=== PATIENT | male | born 1980 | race Caucasian/White ===

== ENCOUNTER 2021-08-11 07:09 | Emergency (ER) | payer BC, MEDICAID, SELFPAY ==
[2021-08-11 07:10] VITALS: BP 123/90; PULSE 65; RESP 25; TEMP 36.8; O2SAT 97; BMI 25.1
--- NOTE | 2021-08-11 07:19 | W.ED.GENADLT ---
HPI - General Adult General: Chief complaint: Shortness of Breath/Dyspnea Stated complaint: cough,dizzy Time Seen by Provider: 08/11/21 07:19 History of Present Illness: 40-year-old male presents emergency room. He is complaining of shortness of breath and chest congestion. Approximately 6-8 weeks ago patient had COVID. He tolerated that well and recovered but states that since that time he has noticed shortness of breath poor exercise tolerance. Activities that usually would not bother him now he feels are strenuous and cause severe shortness of breath. Patient denies any further fever sweats or chills. He has a nonproductive cough. Patient does smoke he has no known history of asthma. Beyond rest he has not noticed anything that relieves his symptoms. He states almost any level of exertion will trigger them. He has not had any hemoptysis. He has not currently taking any medications. He was not hospitalized for his COVID. Onset (ago): week(s) Location: chest Severity: moderate Relieving factors: none Exacerbating factors: none Associated symptoms: Reports cough, dyspnea, short of breath and weakness; Deny chest pain, confusion, diaphoresis, decreased appetite, fevers/chills, headache(s), malaise, nausea, rash, palpitations, seizures, syncope or vomiting Treatments prior to arrival: none Review of Systems Const: Denies: malaise or diaphoresis ENMT: Denies: throat pain, ear or mastoid pain, nasal discharge or nasal congestion Card: Denies: chest pain, palpitations or syncope Resp: Reports: dyspnea GI: Denies: nausea or vomiting : Denies: flank pain, dysuria, urinary frequency or urinary urgency Skin/Breast: Denies: rash Neuro: Denies: headache(s) or confusion [facility] ED PFSH: Medical History (Updated 08/11/21 @ 09:44 by Gume Marcelino DO) Hypothyroidism Surgical History (Updated 08/11/21 @ 08:37 by Gume Marcelino DO) No significant past surgical history Social History (Updated 08/11/21 @ 08:37 by Gume Marcelino DO) Smoking and tobacco status: current every day smoker Physical Exam Const: COMMON NORMALS: no acute distress GENERAL APPEARANCE: cooperative and comfortable ORIENTATION/CONSCIOUSNESS: Yes awake, Yes oriented to person, Yes oriented to place and Yes oriented to time HENMT: COMMON NORMALS: normocephalic, atraumatic and hearing grossly normal bilaterally HEAD & SCALP: normocephalic and atraumatic Neck/C-Spine: COMMON NORMALS: no JVD Resp: COMMON NORMALS: normal respiratory effort, No retractions, No use of accessory muscles and clear to auscultation bilaterally AUSCULTATION: clear to auscultation bilaterally Cardio: COMMON NORMALS: no JVD, regular rate, regular rhythm and No murmurs present (Cardio) RATE: regular rate RHYTHM: regular rhythm GI: COMMON NORMALS: Soft to palpation and No hepatosplenomegaly present AUSCULTATION: Yes normoactive bowel sounds PALPATION: Yes Soft to palpation, No Tenderness to palpation present (GI), No Guarding due to palpation present (GI) and Yes No hepatosplenomegaly present Extremity: COMMON NORMALS: normal to inspection, capillary refill normal, no clubbing, cyanosis or edema, no calf tenderness and no pedal edema Neuro: SENSORIUM/ORIENTATION: Yes oriented to person, Yes oriented to place and Yes oriented to time Skin: COMMON NORMALS: no rashes or lesions noted GENERAL SKIN EXAM: no rashes or lesions noted Course Vital Signs: Vital signs: Vital Signs Temperature 98.2 F 08/11/21 07:10 Pulse Rate 60 08/11/21 10:00 Respiratory Rate 16 08/11/21 10:00 Blood Pressure 138/97 08/11/21 10:00 Pulse Oximetry 97 08/11/21 10:00 [facility] - General Adult Medical Decision Making D-dimer mildly elevated. No PE. There is a question of intramural thrombus I discussed with Dr. Connolly she feels that some very unlikely possibility but on the imaging there was some concern of it. His D-dimer is only minimally elevated. Patient does smoke. I think these are more residual symptoms from his previous Covid infection we will put him on albuterol to use as needed and to set him up to see pulmonology reviewed findings and recommendations with him he is expresses understanding of the plan Case management will contact him for referral. Discharge home for now return for sudden or worsening symptoms Medical Records I reviewed the patient's medical records. Lab Data I reviewed the patient's lab results. : 08/11/21 08:00 08/11/21 08:00 Radiology Impressions Chest CTA 08/11/21 08:31 IMPRESSION: 1. No pulmonary embolism. 2. No pneumonia. 3. Mild increased density towards the LEFT ventricular apex. This may be due to incomplete mixing of contrast. Ventricular thumb this may appear similar. Echocardiogram would be helpful to exclude LEFT ventricular apex thrombus. Laboratory Results WBC 6.6 10^3/uL (4.0-10.0) 08/11/21 08:00 RBC 5.23 10^6/uL (4.1-5.3) 08/11/21 08:00 Hgb 15.9 g/dL (11.7-16.6) 08/11/21 08:00 Hct 45.3 % (42.0-52.0) 08/11/21 08:00 MCV 86.6 fl (80-94) 08/11/21 08:00 MCH 30.4 pg (28.0-34.0) 08/11/21 08:00 MCHC 35.1 g/dL (30.0-36.0) 08/11/21 08:00 RDW 12.3 % (12.1-15.1) 08/11/21 08:00 Plt Count 222 10^3/cmm (130-400) 08/11/21 08:00 MPV 10.5 fL (7.4-10.4) H 08/11/21 08:00 Neut % (Auto) 57.5 % 08/11/21 08:00 Lymph % (Auto) 31.8 % 08/11/21 08:00 Potter % (Auto) 7.0 % 08/11/21 08:00 Eos % (Auto) 2.6 % 08/11/21 08:00 Baso % (Auto) 0.8 % 08/11/21 08:00 Neut # (Auto) 3.79 10^3/uL (1.8-7.7) 08/11/21 08:00 Lymph # (Auto) 2.1 10^3/uL (0.8-4.8) 08/11/21 08:00 Potter # (Auto) 0.5 10^3/uL (0.2-0.9) 08/11/21 08:00 Eos # (Auto) 0.2 10^3/uL (0.0-0.8) 08/11/21 08:00 Baso # (Auto) 0.1 10^3/uL (0.0-0.1) 08/11/21 08:00 Nucleated RBC % (auto) 0 % 08/11/21 08:00 Nucleated RBCs # 0.0 /100WBC 08/11/21 08:00 D-Dimer 0.72 ug/mIFEU (0-0.59) H 08/11/21 08:00 Sodium 136 mmol/L (136-145) 08/11/21 08:00 Potassium 4.4 mmol/L (3.5-5.1) 08/11/21 08:00 Chloride 103 mmol/L (98-107) 08/11/21 08:00 Carbon Dioxide 22 mmol/L (22-29) 08/11/21 08:00 Anion Gap 15.4 (5-19) 08/11/21 08:00 BUN 10 mg/dL (6-20) 08/11/21 08:00 Creatinine 0.7 mg/dL (0.7-1.2) 08/11/21 08:00 GFR Calculation 124.3 mL/min (90-130) 08/11/21 08:00 Glucose 87 mg/dL (65-115) 08/11/21 08:00 Calculated Osmolality 280 mOsm/kg (285-295) L 08/11/21 08:00 Calcium 9.6 mg/dL (8.5-10.5) 08/11/21 08:00 Discharge Plan Discharge Patient Disposition: Home Clinical Impression: Chronic dyspnea, 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 hotel office manager will make arrangements for you to follow-up with pulmonology to further evaluate the shortness of breath. Coding Level of Care Code ED Outside Machinist Supervisor for Chg Fwd Exam Comprehensive
[2021-08-11 07:25] VITALS: BP 121/89; PULSE 64; RESP 16; O2SAT 97
--- NOTE | 2021-08-11 07:33 | ECG_ITS ---
[facility] Test Date: 2021-08-11 Pat Name: Mark Alvarez Department: Room: Gender: Male Furniture Builder: : 1980 Requested By: Gume Estrada Order Number: [id number] Celine MD: Poonam Camarena M.D. Measurements Intervals [place] Rate: 52 P: 59 MS: 129 QRS: 33 QRSD: 92 T: 63 QT: 383 QTc: 358 Interpretive Statements SINUS BRADYCARDIA No previous ECG available for comparison Electronically Signed On 08-11-2021 16:11:09 HANGER by Poonam Camarena M.D. [id number]
[2021-08-11 08:16] LABS: Basophils # 0.1 10^3/uL (0.0-0.1); Basophils % 0.8 %; Eosinophils # 0.2 10^3/uL (0.0-0.8); Eosinophils % 2.6 %; Hematocrit 45.3 % (42.0-52.0); Hemoglobin 15.9 g/dL (11.7-16.6); Lymphocytes # 2.1 10^3/uL (0.8-4.8); Lymphocytes % 31.8 %; Mean Corpuscular HGB Conc 35.1 g/dL (30.0-36.0); Mean Corpuscular Hemoglobin 30.4 pg (28.0-34.0); Mean Corpuscular Volume 86.6 fl (80-94); Mean Platelet Volume 10.5 fL (7.4-10.4); Monocytes # 0.5 10^3/uL (0.2-0.9); Neutrophils # 3.79 10^3/uL (1.8-7.7); Neutrophils % 57.5 %; Nucleated Red Blood Cells % 0 %; Platelet Count 222 10^3/cmm (130-400); Red Blood Count 5.23 10^6/uL (4.1-5.3); Red Cell Distribution Width 12.3 % (12.1-15.1); White Blood Count 6.6 10^3/uL (4.0-10.0)
[2021-08-11 08:27] LABS: D Dimer 0.72 ug/mIFEU (0-0.59)
[2021-08-11 08:31] LABS: Anion Gap 15.4 (5-19); Blood Urea Nitrogen 10 mg/dL (6-20); Calcium 9.6 mg/dL (8.5-10.5); Carbon Dioxide 22 mmol/L (22-29); Chloride 103 mmol/L (98-107); Glomerular Filtration Rate 124.3 mL/min (90-130); Glucose 87 mg/dL (65-115); Osmolality Calculated 280 mOsm/kg (285-295); Potassium 4.4 mmol/L (3.5-5.1); Sodium 136 mmol/L (136-145)
--- NOTE | 2021-08-11 08:31 | CT_ITS ---
WS: [id number] CT CHEST ANGIOGRAPHY WITH REFORMATS HISTORY: dypsnea/elevated d dimer TECHNIQUE: Contiguous axial images are obtained through the chest during arterial injection of intrav enous contrast. Images are reconstructed to evaluate the pulmonary arteries. MIP imaging also reviewe d. All CT scans at [facility] [place] use at least one of these dose optimization techniques: automat ed exposure control; mA and/or kV adjustment per patient size (includes targeted exams where dose is matched to clinical indication); or iterative reconstruction. CONTRAST: Omnipaque 350; 95 mL IV. DLP: 589.81 mGy.cm COMPARISON: None available. Excellent opacification of the pulmonary arteries. No pulmonary embolism. The pulmonary artery is nor mal size. Thoracic aorta is normal size. No opacification of the aorta due to phase of injection and imaging. No RIGHT heart strain. LEFT ventricle does appear slightly enlarged. There is mixed contrast opacification within the LEFT ventricle especially towards the apex. This is probably due to mixing of blood.0 Underlying intraventricular thrombus at the apex may appear similar. No mediastinal or hilar adenopathy. Lungs are clear. No mass or pneumonia. Small hiatal hernia. No ad renal mass. The visualized liver is normal. CT/CT angio chest PE protcl [id number] IMPRESSION: 1. No pulmonary embolism. 2. No pneumonia. 3. Mild increased density towards the LEFT ventricular apex. This may be due t o incomplete mixing of contrast. Ventricular thumb this may appear similar. Ech ocardiogram would be helpful to exclude LEFT ventricular apex thrombus.
[2021-08-11 10:00] VITALS: BP 138/97; PULSE 60; RESP 16; O2SAT 97
--- NOTE | 2021-08-19 17:49 | DCPLANNER ---
Addendum entered by Em Dunham 09/12/21 07:49: Patient had a follow up appointment scheduled for 08.28.[address] Butcher at [facility] - patient did not attend appointment. Original Note: it service manager had message to schedule a follow up appointment for patient with pulmonology. it service manager called [facility], spoke with Stefanie Mancilla, gave clinic patients information. A follow up appointment was scheduled for August at 8:[address] Butcher. it service manager called patient and gave him the appointment information.
== END 2021-08-11 10:01 | disposition home or self-care (01) ==
PROVIDERS: Emergency Provider Family Medicine
DX: R06.09 Other forms of dyspnea (principal); U09.9 Post COVID-19 condition, unspecified; F17.210 Nicotine dependence, cigarettes, uncomplicated
CPT/HCPCS: 71275; 80048; 85025; 85378; 93005; 99283; Q9967

== ENCOUNTER 2022-10-29 07:59 | Emergency (ER) | payer MEDICAID, SELFPAY ==
[2022-10-29 08:08] VITALS: BP 134/87; PULSE 63; RESP 18; TEMP 36.6; O2SAT 100; BMI 25.9
--- NOTE | 2022-10-29 08:16 | ED_ITS ---
HPI - Ear Problem General: Chief complaint: Upper Respiratory Infection Stated complaint: jaw and ear pain Time Seen by Provider: 10/29/22 08:08 Source: patient Mode of arrival: ambulatory Limitations: no limitations History of Present Illness: Patient is a nice 42-year-old male who presents to ED today with complaint of left ear pain. He states about 2 weeks ago he was having bilateral ear pain and seen at [facility] ED. He states he was diagnosed with a bilateral ear infection and placed on a 10-day course of antibiotics. Patient states while on antibiotics symptoms to his right ear fully resolved but states his left ear never improved. He is complaining of pain to the ear radiating into the with the left side of his face and jaw. He has no dental discomfort. He states most of his teeth are extracted. He has not noticed any facial swelling or redness. He has no neck pain or swelling. No fevers. He is not having any discharge from the ear. Denies tinnitus. He does feel like hearing is muffled. He states when he was diagnosed with the ear infections he was also having symptoms of sinusitis. He states he believes his allergies might be flaring up. MD Complaint: ear pain Location: left ear Duration: constant Severity: moderate Relieving factors: nothing Exacerbating factors: nothing Context: other (recent dx of bilateral otitis media) Discharge from ear: no Associated symptoms: Reports ear or mastoid pain; Denies fever(s), headache(s), neck pain or tinnitus Treatment prior to arrival: other (finished 10 day course of abx) Review of Systems Const: Denies: fever(s), chills, body aches, fatigue or malaise Eyes: Denies: change in vision, blurry vision, photophobia, eye discomfort or eye discharge ENMT: Reports: ear or mastoid pain and sinus pain; Denies: throat pain, enlarged tonsils, odynophagia, hoarseness, mouth pain, swelling of lips/tongue, oral sores, bleeding gums, dental pain, ear discharge, change in hearing, tinnitus, nasal discharge, nasal congestion, epistaxis or post nasal drip Card: Denies: chest pain Resp: Denies: productive cough or non-productive cough Musc: Denies: neck pain Neuro: Denies: headache(s) All/Imm: Denies: facial swelling or seasonal rhinorrhea PFSH ED PFSH: Medical History (Updated 10/29/22 @ 08:17 by CHARLIE Ayala) Hypothyroidism Surgical History (Updated 08/11/21 @ 08:37 by Gume Marcelino DO) No significant past surgical history Social History (Updated 08/11/21 @ 08:37 by Gume Marcelino DO) Smoking and tobacco status: current every day smoker Physical Exam Const: COMMON NORMALS: no acute distress, average body habitus, patient oriented x3, no limitations, alert and well nourished GENERAL APPEARANCE: cooperative ORIENTATION/CONSCIOUSNESS: Yes awake, Yes oriented to person, Yes oriented to place and Yes oriented to time HENMT: COMMON NORMALS: normocephalic, atraumatic, hearing grossly normal bilaterally, external ears normal, EAC's normal, Normal external nose present, Normal nasal mucous membranes and turbinates present, moist oral mucous membranes, oropharynx normal and gingiva normal HEAD & SCALP: normal to inspection, normocephalic and atraumatic FACE & SINUS: normal facial exam and sinuses nontender NOSE: Normal external nose present and Normal nasal mucous membranes and turbinates present EXTERNAL EAR: Yes external ears normal EXTERNAL AUDITORY CANAL: EAC's normal TYMPANIC MEMBRANE: TM normal on the right and TM abnormal TM laterality: left Details: dull and fluid behind TM MOUTH: Normal oral and palatal mucosa present, lip normal and tongue normal TEETH & GINGIVA: Yes edentulous (apart from a few central and lateral incisors on bottom) THROAT: posterior oropharynx normal, tonsils normal and uvula midline Eye: COMMON NORMALS: Equal, round and reactive pupils present, EOMs intact bilaterally and conjunctivae normal CONJUNCTIVA: Yes conjunctivae normal PUPIL: Yes Equal, round and reactive pupils present Neck/C-Spine: COMMON NORMALS: full ROM and no lymphadenopathy GENERAL: Yes normal visual inspection, No anterior neck swelling and No submandibular swelling Neuro: COMMON NORMALS: patient oriented x3 SENSORIUM/ORIENTATION: Yes alert, Yes oriented to person, Yes oriented to place and Yes oriented to time Course Vital Signs: Vital signs: Vital Signs Temperature 97.9 F 10/29/22 08:08 Pulse Rate 63 10/29/22 08:08 Respiratory Rate 18 10/29/22 08:08 Blood Pressure 134/87 10/29/22 08:08 Pulse Oximetry 100 10/29/22 08:08 Oxygen Delivery Me thod Room Air 10/29/22 08:08 MDM - Ear Medical Decision Making Patient with left serous otitis following what sounds like a sinusitis episode. He has just finished a 10 day course of antibiotics. Reports history of allergies. I think he would benefit form being placed on some flonase. He can follow up with PCP in 2-3 weeks if symptoms do not seem to be improving. Discharge Plan Discharge Patient Disposition: Home Clinical Impression: Acute serous otitis media, left ear Qualifiers: Recurrence: non-recurrent Qualified Code(s): H65.02 - Acute serous otitis media, left ear Condition: Stable Prescriptions: New Allergy Relief (fluticasone) 50 mcg/actuation spray,suspension 1 spray intranasal BID PRN (Reason: allergy symptoms) Qty: 16 0RF Rx Instructions: administer into each nostril No Action albuterol sulfate 90 mcg/actuation HFA aerosol inhaler 2 inh INHALATION Q4H PRN (Reason: shortness of breath or wheezing) Qty: 18 0RF Discharge Orders: Discharge ED (Routine); Ordered 10/29/22 Ordered By: Cony Garcia Referrals: Raven Baca NP [Primary Care Provider] - Patient Instructions: Fluid In The Ear (Serous Otitis Media) (ED) Coding Level of Care Code ED Hospitality Recruiter for Jacob Jefferson
[2022-10-29 08:21] VITALS: BP 134/87; PULSE 66; O2SAT 100
== END 2022-10-29 08:22 | disposition home or self-care (01) ==
PROVIDERS: Emergency Provider Physician Assistant; PCP Nurse Practitioner Family
DX: H65.02 Acute serous otitis media, left ear (principal); F17.210 Nicotine dependence, cigarettes, uncomplicated
CPT/HCPCS: 99283

== ENCOUNTER 2022-11-18 10:34 | Outpatient (CLI) | payer MEDICAID, SELFPAY ==
--- NOTE | 2022-11-18 10:45 | XR_ITS ---
WS: [id number] XR chest 2V* [id number] REASON FOR EXAM: CHRONIC COUGH FINDINGS: Mild tortuosity the thoracic aorta. Normal heart size. Calcified granulomatous disease in both hemithoraces. No active pulmonary parenchymal or pleural disease. XR/XR chest 2V* [id number] IMPRESSION: No acute chest abnormality.
== END 2022-11-18 10:35 | disposition home or self-care (01) ==
LOC: RAD 10:38
PROVIDERS: PCP Nurse Practitioner Family; Visit Provider Nurse Practitioner Family
DX: R05.3 Chronic cough (principal)
CPT/HCPCS: 71046

== ENCOUNTER 2022-12-09 07:03 | Outpatient (CLI) | payer MEDICAID, SELFPAY | END 2022-12-09 07:04 | disposition home or self-care (01) | PROVIDERS: PCP Nurse Practitioner Family; Visit Provider Nurse Practitioner Family | DX: R05.3 Chronic cough (principal); Z87.891 Personal history of nicotine dependence; G47.10 Hypersomnia, unspecified | CPT/HCPCS: 94010; 94726; 94729 ==

== ENCOUNTER → 2023-03-09 13:33 | Outpatient (BNVA) | payer MEDICAID, SELFPAY | PROVIDERS: PCP Nurse Practitioner Family; Visit Provider Internal Medicine | DX: R07.9 Chest pain, unspecified (principal) | CPT/HCPCS: 93005 ==

== ENCOUNTER 2023-03-18 07:18 | Outpatient (CLI) | payer MEDICAID, SELFPAY ==
--- NOTE | 2023-03-18 07:30 | USCV_ITS ---
Mark Alvarez Age: 42 Gender: M : 1980 Exam Date: 03/18/2023 07:32 Ordering Phys: Surjit Conte M.D ([email or web address]) Technologist: Laz Falcon Exam Location: [facility] Indication: irregular heart beat BP: 120 / 70 HR: 49 Rhythm: Sinus Technical Quality: Adequate MEASUREMENTS (Male / Female) Normal Values 2D ECHO LV Diastolic Diameter PLAX 4.6 cm 4.2 - 5.9 / 3.9 - 5.3 cm LV Systolic Diameter PLAX 2.9 cm IVS Diastolic Thickness 0.8 cm 0.6 - 1.0 / 0.6 - 0.9 cm IVS Systolic Thickness 1.5 cm LVPW Diastolic Thickness 1.1 cm 0.6 - 1.0 / 0.6 - 0.9 cm LVPW Systolic Thickness 1.6 cm LVOT Diameter 2.1 cm LV Ejection Fraction 2D Teich 67.4 % LA Diameter 2.8 cm IVC Diameter 1.8 cm M-MODE Aortic Annulus Diameter 3.3 cm LA Ao Ratio MM 0.9 MV E Point Septal Separation 0.8 cm DOPPLER AV Peak Velocity 113.0 cm/s LVOT Peak Velocity 113.0 cm/s AV Area Cont Eq vti 3.0 cm squared AV Area Cont Eq pk 3.4 cm squared MV Area PHT 3.5 cm squared Mitral E to A Ratio 1.2 MV E' Velocity 49.5 cm/s Mitral E to MV E' Ratio 7.3 Mitral E to LV E' Lateral Ratio 6.4 Mitral E to LV E' Septal Ratio 8.5 TR Peak Velocity 197.3 cm/s TR Peak Gradient 15.6 mmHg Right Atrial Pressure 3.0 mmHg Pulmonary Artery Systolic Pressu 18.6 mmHg RV Acceleration Time 0.1 s FINDINGS Left Ventricle Normal left ventricular size, systolic function with no regional wall motion abnormalities. LV EF is 55-60%. Right Ventricle The right ventricle is normal in size and function. Right Atrium The right atrium is normal in size. Left Atrium The left atrium is normal in size. Mitral Valve Structurally normal mitral valve. There is no mitral regurgitation. Aortic Valve Structurally normal aortic valve Tricuspid Valve Mild tricuspid regurgitation. Pulmonary artery systolic pressure is normal Pulmonic Valve Not well visualized Pericardium Normal pericardium without effusion. Aorta Normal ascending aorta dimension. IVC The inferior vena cava appears normal. CONCLUSIONS LV systolic function is normal with EF of 55-60% Trace tricuspid regurgitation No comparison studies are available. Surjit Conte MD (Electronically Signed) Final Date: 27 March 2023 11:46 S
== END 2023-03-18 07:19 | disposition home or self-care (01) ==
PROVIDERS: PCP Nurse Practitioner Family; Visit Provider Internal Medicine
DX: R06.02 Shortness of breath (principal); R00.9 Unspecified abnormalities of heart beat
CPT/HCPCS: 93306

== ENCOUNTER 2023-04-20 20:00 | Outpatient (CLI) | payer MEDICAID, SELFPAY | END 2023-04-20 20:01 | disposition home or self-care (01) | LOC: SLEEP 04-21 05:55 | PROVIDERS: PCP Nurse Practitioner Family; Visit Provider Nurse Practitioner Family | DX: G47.34 Idiopathic sleep related nonobstructive alveolar hypoventilation (principal); R53.83 Other fatigue; R06.83 Snoring | CPT/HCPCS: 95810 ==

== ENCOUNTER 2023-05-14 12:45 | Outpatient (CLI) | payer MEDICAID, SELFPAY ==
--- NOTE | 2023-05-14 | ECG_ITS ---
[facility] Test Date: 2023-05-14 Pat Name: Mark Alvarez Department: Room: Gender: Male Security Compliance Engineer: Vesna AdamsAnkur : 1980 Requested By: Surjit Conte Order Number: [id number] Celine MD: Surjit Conte M.D. Interpretive Statements NAME OF STUDY: TREADMILL STRESS TEST INDICATION: [Chest Pain] EXERCISE DATA: The patient was exercised by Aime protocol. Baseline heart rate was 74 beats per minute. Baseline blood pressure was 109/77 millimeters of mercury. Target heart rate was 150 beats per minute. Maximum heart rate achieved was 168, which was 112% of the target heart rate. Maximum blood pressure was 165/41 millimeters of mercury. Total exercise time was 10 minutes and 21 seconds. Maximum METs achieved was 13.5. The reason for ending the test was completion of protocol. The patient complained of shortness of breath during the stress test, which then resolved at the end of the test. ELECTROCARDIOGRAM: BASELINE: Showed sinus rhythm, normal axis, no significant ST-T changes at the baseline noted. [] EXERCISE: At the peak exercise level, [] No significant ST-T changes suggestive of ischemia noted. [] RECOVERY: During the recovery period, heart rate dropped appropriately. No significant ST-T changes in the recovery suggestive of ischemia noted. [] CONCLUSION: 1. Exercise capacity is excellent 2. Heart rate response was appropriate 3. Blood pressure response was appropriate 4. Symptoms not suggestive of ischemia. 5. Exercise stress test is negative for ischemia Electronically Signed On 05-19-2023 14:17:29 DIRECTOR INSTITUTION by Surjit Conte M.D. [id number]
[2023-05-14 12:51] VITALS: BMI 23.7
[2023-05-14 13:17] VITALS: BP 140/86; PULSE 83
== END 2023-05-14 12:46 | disposition home or self-care (01) ==
LOC: CDL 12:47
PROVIDERS: Visit Provider Internal Medicine
DX: R07.9 Chest pain, unspecified (principal)
CPT/HCPCS: 93017

== ENCOUNTER 2023-09-07 18:50 | Emergency (ER) | payer MEDICAID, SELFPAY ==
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
[2023-09-07 18:56] VITALS: BP 136/82; PULSE 83; RESP 16; TEMP 36.7; O2SAT 99; BMI 22.6
--- NOTE | 2023-09-07 19:10 | ED_ITS ---
HPI - Extremity Problem General: Chief complaint: Extremity Injury, Lower Stated complaint: right knee pain Time Seen by Provider: 09/07/23 18:55 Source: patient Mode of arrival: ambulatory Limitations: no limitations History of Present Illness: Patient is a 43-year-old male presenting to the emergency department complaining of right knee pain onset 2-3 days. Patient notes he was moving a 14 foot tr ailer by himself on Wednesday, when he pivoted his right foot and felt a pop and subsequent twisting injury at the right knee. He notes being unable to ambulate on it since, and that he was evaluated at that time and cleared of any acute fracture or dislocation. He was told at that time to follow-up with primary care for further evaluation, and states while he has an appointment scheduled for this Wednesday, the pain is too unbearable and due to his occupation and lifestyle he needs to be able to do some things. He states the pain has not changed, but has worsened. He denies any new bruising or edema. He has been alternating Tylenol and ibuprofen and notes minimal relief. He does have crutches at home but states he has not been using these as often as he should. He denies any other symptoms at this time. MD Complaint: joint pain (Right knee) Onset (ago): day(s) (2-3) Pain Consistency: constant Location: right Quality: sharp Radiation: none Relieving factors: nothing Exacerbating factors: walking and other (Twisting) Associated symptoms: Reports no associated symptoms; Deny chest pain, fever(s) or rash Review of Systems General: Reports: 10 or more systems reviewed and unremarkable except in HPI and below Const: Denies: fever(s), chills or fatigue Eyes: Denies: change in vision ENMT: Denies: throat pain, ear or mastoid pain or nasal discharge Card: Denies: chest pain, palpitations, swelling of feet/ankles or lightheadedness Resp: Denies: dyspnea, productive cough or wheezing GI: Denies: abdominal pain, nausea, vomiting, diarrhea or constipation : Denies: flank pain, difficulty urinating, dysuria or urinary frequency Musc: Reports: joint pain (Right knee); Denies: neck pain or back pain Skin/Breast: Denies: rash Neuro: Denies: headache(s), numbness in extremities or weakness in extremities PFSH ED PFS: Medical History Hypothyroidism Surgical History No significant past surgical history Social History Smoking and tobacco/nicotine status: current every day tobacco/nicotine user Physical Exam Const: COMMON NORMALS: no acute distress, patient oriented x3 and no limitations GENERAL APPEARANCE: cooperative, comfortable and well developed ORIENTATION/CONSCIOUSNESS: Yes awake, Yes oriented to person, Yes oriented to place and Yes oriented to time HENMT: COMMON NORMALS: normocephalic, atraumatic and hearing grossly normal bilaterally HEAD & SCALP: normocephalic and atraumatic Eye: COMMON NORMALS: Equal, round and reactive pupils present, EOMs intact bilaterally and conjunctivae normal CONJUNCTIVA: Yes conjunctivae normal PUPIL: Yes Equal, round and reactive pupils present Neck/C-Spine: COMMON NORMALS: full ROM, supple and no JVD Resp: COMMON NORMALS: normal respiratory effort, No retractions, No use of accessory muscles and clear to auscultation bilaterally AUSCULTATION: clear to auscultation bilaterally Cardio: COMMON NORMALS: no JVD, regular rate, regular rhythm, No clicks present (Cardio), No murmurs present (Cardio) and No rub (Cardio) RATE: regular rate RHYTHM: regular rhythm Extremity: COMMON NORMALS: normal to inspection, capillary refill normal, no clubbing, cyanosis or edema, no calf tenderness and no pedal edema NARRATIVE EXTREMITY EXAM: Tenderness to palpation at the lateral and medial joint lines of the right knee. No obvious swelling or bruising. No deformities noted. Special testing of the knee unreliable as pain is reproduced with any movement. No appreciable joint effusion. Neuro: COMMON NORMALS: patient oriented x3, moves all extremities, no focal motor deficits and no sensory deficits noted SENSORIUM/ORIENTATION: Yes oriented to person, Yes oriented to place and Yes oriented to time Psych: COMMON NORMALS: mental status grossly normal and Normal thought process present THOUGHT PROCESS: Normal thought process present Skin: COMMON NORMALS: no rashes or lesions noted GENERAL SKIN EXAM: no rashes or lesions noted Course Vital Signs: Vital signs: Vital Signs Temperature 98.1 F 09/07/23 18:56 Pulse Rate 83 09/07/23 18:56 Respiratory Rate 16 09/07/23 18:56 Blood Pressure 136/82 09/07/23 18:56 Pulse Oximetry 99 09/07/23 18:56 Oxygen Delivery Me thod Room Air 09/07/23 18:56 MDM - Extremity (Nontraumatic) Medical Decision Making Patient seen and evaluated for subsequent encounter of right knee pain he suffered while moving a trailer on Wednesday. He notes that the pain is wo rsened, and while he has an appointment scheduled for primary care this Wednesday, the pain has become unbearable and due to his lifestyle he would like some relief. Repeat x-ray showed no acute findings. Vitals normal. Exam did reveal some tenderness to palpation about the right lateral medial joint line of the knee, however there was no bruising, deformities, or appreciable joint effusions. Patient is prescribed [place] to take as needed for his pain until follow-up Wednesday, and he is instructed to be nonweightbearing and states he has crutches at home. At this time patient diagnosed with right knee sprain, however this needs further evaluated with an MRI. Patient agrees with discharge home and return precautions are given. Lab Data Radiology Impressions Knee X-Ray 09/07/23 18:51 IMPRESSION: No acute findings. All radiology interpretation(s) finalized by discharge Discharge Plan Discharge Patient Disposition: Home Clinical Impression: Right knee sprain Qualifiers: Encounter type: subsequent encounter Involved ligament of knee: unspecified ligament Qualified Code(s): S83.91XD - Sprain of unspecified site of right knee, subsequent encounter Condition: Stable Prescriptions: New hydrocodone-acetaminophen 5-325 mg tablet 1 tab PO Q6H PRN (Reason: pain) Qty: 14 0RF No Action magnesium oxide 500 mg capsule 500 mg PO DAILY Vitamin B-12 PO potassium gluconate 595 mg (99 mg) tablet 595 mg PO DAILY albuterol sulfate 90 mcg/actuation HFA aerosol inhaler 2 inh INHALATION Q4H PRN (Reason: shortness of breath or wheezing) Qty: 18 0RF Allergy Relief (fluticasone) 50 mcg/actuation spray,suspension 1 spray intranasal BID PRN (Reason: allergy symptoms) Qty: 16 0RF Rx Instructions: administer into each nostril Discharge Orders: Discharge ED (Routine); Ordered 09/07/23 Ordered By: Augie Walker Discharge Diet: Usual diet Discharge Activity: Increase activity as tolerated Patient Instructions: Knee Pain (ED) Activity Restrictions/Additional Instructions: Pain medications as directed. Ice for added relief. Nonweightbearing as instructed. Continue plan for follow-up this Wednesday for further evaluation. Return with any new or concerning symptoms. Stand Alone Forms: Work/School Release Coding Level of Care Code ED Cooler Room Worker for Jacob Jefferson
[2023-09-07] MEDS: ketorolac 60 mg/2 mL INJ IM (19:16)
[2023-09-07] MEDS: dexamethasone 10 mg/mL INJ 8 MG IM (19:16)
[2023-09-07 19:42] VITALS: PULSE 82; RESP 16; O2SAT 97
== END 2023-09-07 19:43 | disposition home or self-care (01) ==
PROVIDERS: Emergency Provider Physician Assistant
DX: S83.91XA Sprain of unspecified site of right knee, initial encounter (principal); Z72.0 Tobacco use; X50.1XXA Overexertion from prolonged static or awkward postures, initial encounter
CPT/HCPCS: 73562; 96372; 99284; J1100; J1885

== ENCOUNTER 2024-02-20 13:32 | Emergency (ER) | payer MEDICAID, SELFPAY ==
[2024-02-20 13:55] VITALS: BP 109/75; PULSE 70; RESP 17; TEMP 36.7; O2SAT 98; BMI 22.8
--- NOTE | 2024-02-20 14:15 | ED_ITS ---
HPI - Extremity Problem General: Chief complaint: Extremity Injury, Lower Stated complaint: right angle and knee injury Time Seen by Provider: 02/20/24 14:14 History of Present Illness: 43-year-old male patient comes in today for injury to the right ankle. Patient reports that he was on a trampoline and was jumping and bouncing and felt a pop in his ankle. Patient now has pain to the right ankle is unable to bear weight. Patient has antalgic gait. Patient also reports some mild pain to his right knee. Related Data Home Medications Medication Instructions Recorded Confirmed Vitamin B-12 PO 03/09/23 06/09/23 magnesium oxide 500 mg capsule 500 mg PO DAILY 03/09/23 06/09/23 potassium gluconate 595 mg (99 mg) 595 mg PO DAILY 03/09/23 06/09/23 tablet Previous Rx's Medication Instructions Recorded albuterol sulfate 90 mcg/actuation 2 inh inhalation Q4H PRN shortness 08/11/21 aerosol inhaler of breath or wheezing #18 grams fluticasone propionate 50 1 spray intranasal BID PRN allergy 10/29/22 mcg/actuation nasal symptoms #16 grams spray,suspension (Allergy Relief (fluticasone)) hydrocodone 5 mg-acetaminophen 325 1 tab PO Q6H PRN pain #14 tabs 09/07/23 mg tablet ketorolac 10 mg tablet 10 mg PO Q6H PRN pain #10 tabs 02/20/24 Allergies Allergy/AdvReac Type Severity Reaction Status Date / Time No Known Allergies Allergy Verified 06/09/23 14:35 Review of Systems General: Reports: 10 or more systems reviewed and unremarkable except in HPI and below Musc: Reports: joint pain (Right knee and ankle) PFSH ED PFSH: Medical History Hypothyroidism Surgical History No significant past surgical history Social History Smoking and tobacco/nicotine status: current every day tobacco/nicotine user Physical Exam Const: COMMON NORMALS: alert HENMT: COMMON NORMALS: normocephalic HEAD & SCALP: normocephalic Neck/C-Spine: COMMON NORMALS: full ROM Resp: COMMON NORMALS: normal respiratory effort Cardio: COMMON NORMALS: regular rate RATE: regular rate Extremity: RIGHT LOWER EXTREMITY: Yes knee joint (Medial knee tenderness) and Yes foot & digits (Lateral ankle tenderness) Neuro: SENSORIUM/ORIENTATION: Yes alert Skin: COMMON NORMALS: turgor normal GENERAL SKIN EXAM: turgor normal Course Vital Signs: Vital signs: Vital Signs Temperature 98.0 F 02/20/24 13:55 Pulse Rate 70 02/20/24 13:55 Respiratory Rate 17 02/20/24 13:55 Blood Pressure 109/75 02/20/24 13:55 Pulse Oximetry 98 02/20/24 13:55 Oxygen Delivery Me thod Room Air 02/20/24 13:55 MDM - Extremity (Nontraumatic) Medical Decision Making 43-year-old male patient comes in today for complaints of injury to the right ankle. On exam we note minimal to no swelling to the right lateral ankle along with tenderness to palpation. Patient appears in moderate to severe pain at rest. No dislocation or obvious serious injury is noted. Patient has some medial tenderness to the right knee. Normal alignment is noted to the knee. Distal pulses and sensation are intact. Differential diagnosis includes but not limited to fracture, sprain, dislocation. X-ray of the right ankle and right knee noted no acute abnormality. Patient was placed in a elastic bandage for comfort and support to the ankle and crutches. Patient reports understanding of care plan need for follow-up or return to the ER. XR interpretation done by ED provider, pending radiology final review Discharge Plan Discharge Patient Disposition: Home Clinical Impression: Right ankle sprain Qualifiers: Encounter type: initial encounter Involved ligament of ankle: unspecified ligament Qualified Code(s): S93.401A - Sprain of unspecified ligament of right ankle, initial encounter Condition: Stable Prescriptions: New ketorolac 10 mg tablet 10 mg PO Q6H PRN (Reason: pain) Qty: 10 0RF Rx Instructions: maximum total duration of 5 days from all oral, intranasal, or parenteral formulations No Action magnesium oxide 500 mg capsule 500 mg PO DAILY Vitamin B-12 PO potassium gluconate 595 mg (99 mg) tablet 595 mg PO DAILY albuterol sulfate 90 mcg/actuation HFA aerosol inhaler 2 inh INHALATION Q4H PRN (Reason: shortness of breath or wheezing) Qty: 18 0RF Allergy Relief (fluticasone) 50 mcg/actuation spray,suspension 1 spray intranasal BID PRN (Reason: allergy symptoms) Qty: 16 0RF Rx Instructions: administer into each nostril hydrocodone-acetaminophen 5-325 mg tablet 1 tab PO Q6H PRN (Reason: pain) Qty: 14 0RF Discharge Orders: Discharge ED (Routine); Ordered 02/20/24 Ordered By: Florin Christianson Discharge Diet: Usual diet Discharge Activity: Increase activity as tolerated Patient Instructions: Ankle Sprain (ED) Activity Restrictions/Additional Instructions: Home and rest. Activity as tolerated. Use ice packs to the area for pain and discomfort. Use acetaminophen and ketorolac for further pain relief. Follow-up with primary care for further instructions. Return to ED for new concerns. Coding Level of Care Code ED Sort Operations Supervisor for Jacob Jefferson
--- NOTE | 2024-02-20 14:24 | XRR_ITS ---
PROCEDURE INFORMATION: Exam: XR Right Ankle Exam date and time: 02/20/2024 2:58 PM Age: 43 years old Clinical indication: Trampoline injury. TECHNIQUE: Imaging protocol: Radiologic exam of the right ankle. Views: 3 or more views. COMPARISON: CR (LOW EXM, ) 02/20/2024 2:58 PM FINDINGS: Bones/joints: Normal. Soft tissues: Normal. XR/XR ankle RT min 3V* [id number] IMPRESSION: No acute findings.
--- NOTE | 2024-02-20 14:24 | XRR_ITS ---
PROCEDURE INFORMATION: Exam: XR Right Knee Exam date and time: 02/20/2024 2:58 PM Age: 43 years old Clinical indication: Injury or trauma; trampoline injury. TECHNIQUE: Imaging protocol: Radiologic exam of the right knee. Views: 3 views. COMPARISON: CR XR knee RT 3V* [id number] 09/07/2023 7:03 PM FINDINGS: Bones/joints: Unfused tibial tuberosity consistent with chronic Renard-Schlatter's changes. No evidence for acute fracture. Soft tissues: Normal. XR/XR knee RT 3V* [id number] IMPRESSION: Unfused tibial tuberosity consistent with chronic Renard-Schlatter's changes. No evidence for acute fracture.
[2024-02-20] MEDS: ketorolac 10 mg Tablet PO (14:44)
--- NOTE | 2024-02-20 15:48 | PC.NURSE ---
pt refused crutches reporting he had some at home.
== END 2024-02-20 15:43 | disposition home or self-care (01) ==
PROVIDERS: Emergency Provider Nurse Practitioner Family
DX: S93.401A Sprain of unspecified ligament of right ankle, initial encounter (principal); Z72.0 Tobacco use; X50.9XXA Other and unspecified overexertion or strenuous movements or postures, initial encounter; Y93.44 Activity, trampolining
CPT/HCPCS: 73562; 73610; 99284

== ENCOUNTER 2024-06-22 11:39 | Emergency (ER) | payer MEDICAID, SELFPAY ==
[2024-06-22 11:44] VITALS: BP 132/82; PULSE 68; RESP 16; TEMP 36.4; O2SAT 100; BMI 22.8
--- NOTE | 2024-06-22 12:16 | ED_ITS ---
HPI - Extremity Problem General: Chief complaint: Extremity Injury, Lower Stated complaint: R knee problem Time Seen by Provider: 06/22/24 11:49 History of Present Illness: Chief complaint is right knee injury. The patient states this morning he was walking and slipped on ice. He did not fall and hit the ground but his right knee twisted and either way and he has severe pain on the medial aspect of his right knee. He states it hurts a little bit on the outside of it as well. He denies any proximal or distal pain or numbness or tingling. He states he has no medical problems. No head neck back chest or abdominal injury. No injury or pain to his left leg. He states this is not Worker's Comp. and he is self- employed. Related Data Home Medications Medication Instructions Recorded Confirmed magnesium oxide 500 mg capsule 500 mg PO DAILY 03/09/23 06/22/24 Allergies Allergy/AdvReac Type Severity Reaction Status Date / Time No Known Allergies Allergy Verified 06/09/23 14:35 [facility] ED PFS: Medical History Hypothyroidism Surgical History No significant past surgical history Social History Smoking and tobacco/nicotine status: current every day tobacco/nicotine user Physical Exam Narrative: EXAM NARRATIVE: Patient is alert and in mild discomfort. He has pain with any movement of his right knee. He is able to extend his right knee against gravity and lift his leg off the bed with his knee extended. He has no visible swelling to the right knee. He has tenderness especially medially. No erythema. He has intact pulses motor and sensation distally. No pain with range of motion of the ankle foot or hip on the right side. He moves his back freely. No tenderness over his neck or back. No signs of trauma to his head. He is breathing comfortably. Patient has grossly intact anterior drawer though limited by pain. Patient cannot tolerate valgus and varus stress limiting his exam.No focal patellar tenderness. No calf tenderness. No tenderness above the knee. Const: GENERAL APPEARANCE: cooperative and in distress (mild) ORIENTATION/CONSCIOUSNESS: Yes awake and Yes oriented to person HENMT: COMMON NORMALS: normocephalic and atraumatic HEAD & SCALP: normal to inspection, normocephalic and atraumatic Neuro: SENSORIUM/ORIENTATION: Yes oriented to person Course Vital Signs: Vital signs: Vital Signs Temperature 97.5 F L 06/22/24 11:44 Pulse Rate 68 06/22/24 11:44 Respiratory Rate 16 06/22/24 11:44 Blood Pressure 132/82 06/22/24 11:44 Pulse Oximetry 100 06/22/24 11:44 Oxygen Delivery Me thod Room Air 06/22/24 11:44 MDM - Extremity (Nontraumatic) Medical Decision Making Patient presents with right knee injury that occurred abruptly this morning. He did take ibuprofen at home. Patient does not have significant effusion to suggest significant ligamentous rupture. Fracture, ACL tear, other ligament tear, meniscal injury, sprain, broad differential. Dislocation is unlikely by exam and history. Will send patient for x-ray of the right knee. He is intact neurovascularly distally. Patient is driving. I advised patient if no evident fracture on x-ray that we placed him in knee immobilizer and crutches and have him follow-up for MRI if continued pain with his doctor. I advised limits of ED evaluation signs symptoms of worsening to watch and return for. Patient agrees with plan after informed discussion. I ordered a three-view x-ray of the right knee. X-ray negative per radiology for acute fracture. Will place the patient in knee immobilizer and crutches and advised NSAID use it and risk and benefit and c rutch use use and outpatient follow-up. He states he has an appoint with his doctor on Wednesday to follow-up.Advised limits of plain film and potential for occult fracture or ligamentous injury and potential need for MRI if indicated Lab Data Radiology Impressions Knee X-Ray 06/22/24 12:16 IMPRESSION: No acute fracture or malalignment. All radiology interpretation(s) finalized by discharge Discharge Plan Discharge Patient Disposition: Home Clinical Impression: Injury of knee, right Condition: Stable Prescriptions: No Action magnesium oxide 500 mg capsule 500 mg PO DAILY Discharge Orders: Discharge ED (Routine); Ordered 06/22/24 Ordered By: Caleb Lin Activity Restrictions/Additional Instructions: Do not put weight on your knee until cleared by your doctor. Follow-up with your doctorWithin the next week. Keep your leg elevated. Ice intermittently for 10 to 15 minutes at a time. You can take the knee immobilizer off when laying down as discussed. Keep your ankle and calf moving to prevent blood clots. Come back if loss of feeling or color to your foot, increased pain or swelling, any worse or concerns. Please follow-up on your test results with your doctor. Coding Level of Care Code ED Bulk Sugar Handler for Jacob Jefferson
--- NOTE | 2024-06-22 12:16 | XRR_ITS ---
PROCEDURE INFORMATION: Exam: XR Right Knee Exam date and time: 06/22/2024 12:34 PM Age: 43 years old Clinical indication: Injury or trauma; Fall; Blunt trauma; Injury date: 06/22/24; Injury details: PT states he was carrying concrete bags earlier today when he fell and twisted the right knee. ; Additional info: Trauma, pain TECHNIQUE: Imaging protocol: Radiologic exam of the right knee. Views: 3 views. COMPARISON: CR XR knee RT 3V* [id number] 02/20/2024 2:58 PM FINDINGS: Bones/joints: No acute fracture or malalignment. No worrisome lytic or blastic osseous lesion. Tiny tibial tuberosity enthesophyte noted. Joint spaces are preserved. Soft tissues: No joint effusion. No soft tissue abnormality. XR/XR knee RT 3V* [id number] IMPRESSION: No acute fracture or malalignment.
--- NOTE | 2024-06-22 12:57 | PC.NURSE ---
pt refused knee immobilizer, crutches. pt states he has that shit at home and this place does nothing for you . pt states was just looking for pain relief and you guys didn't give me a damn thing . pt refused to allow this nurse to discuss concerns with provider. this nurse walked pt to ED exit where pt wadded up discharge instructions and threw in trash.
== END 2024-06-22 13:04 | disposition home or self-care (01) ==
PROVIDERS: Emergency Provider Emergency Medicine
DX: S89.91XA Unspecified injury of right lower leg, initial encounter (principal); Z72.0 Tobacco use; W00.0XXA Fall on same level due to ice and snow, initial encounter
CPT/HCPCS: 12345; 73562; 99283

== ENCOUNTER 2024-10-03 14:18 | Emergency (ER) | payer MEDICAID, SELFPAY ==
[2024-10-03 14:28] VITALS: BP 108/74; PULSE 79; RESP 17; TEMP 36.8; O2SAT 97; BMI 23.0
--- NOTE | 2024-10-03 14:32 | W.ED.UPPEXIN ---
HPI - Extremity Injury (Upper) General: Chief Complaint: Extremity Injury, Upper Stated Complaint: R shoulder/arm pain Time Seen by Provider: 10/03/24 14:20 Source: patient and family Mode of arrival: ambulatory Limitations: no limitations History of Present Illness: Christian is a 44-year-old male presenting to the emergency department with 4 days of shoulder pain. He initially injured his right shoulder on on Wednesday at work while helping a coworker move equipment. At that time he felt a pop and immediate pain. Was seen at [facility] and had reportedly negative XRs-recommended f/u outpatient for MRI. He was managing pain at home-they had prescribed steroids and one day of pain medications. Today, he was moving a water heater and another job at which point he injured his shoulder further-this time he reporting right elbow pain with it. He says the pain shoots down from his shoulder all the way to his fingertips. He reports 2 to 3 days of intermittent numbness and tingling in the right 4th and 5th digits. MD complaint: injury to: right, shoulder and elbow Onset (ago): day(s) (first injury 4 days ago, second injury today) Other Extremity Injury: Right: elbow and shoulder Place: work Severity: moderate Relieving factors: immobilization Exacerbating factors: movement of extremity Associated symptoms: Reports numbness (right 4th and 5th digits); Denies neck pain or weakness in extremities Related Data Home Medications ?Medication ?Instructions ?Recorded ?Confirmed methylprednisolone 4 mg tablets in See Rx Instructions .Route .COMPLEX 10/03/24 10/03/24 a dose pack Allergies Allergy/AdvReac Type Severity Reaction Status Date / Time No Known Allergies Allergy Verified 06/09/23 14:35 Review of Systems Musc: Reports: joint pain (R shoulder/R elbow) and limited range of motion (due to pain); Denies: neck pain, back pain, extremity pain, extremity swelling, joint swelling, joint redness, joint warmth or muscle weakness Neuro: Reports: numbness in extremities (and tingling in right 4-5th digits; intermittent); Denies: headache(s), weakness in extremities or sensory changes PFS ED PFSH: Medical History Hypothyroidism Surgical History No significant past surgical history Social History Smoking and tobacco/nicotine status: current every day tobacco/nicotine user Physical Exam Const: COMMON NORMALS: average body habitus, patient oriented x3, no limitations, healthy appearing, alert and well nourished GENERAL APPEARANCE: cooperative and in distress (mild) Neck/C-Spine: COMMON NORMALS: full ROM CERVICAL SPINE: No Cervical spine tenderness, No Paracervical muscle tenderness and No Trapezius muscle tenderness Extremity: COMMON NORMALS: capillary refill normal, no joint enlargement and no clubbing, cyanosis or edema GENERAL: Yes normal exam except as noted RIGHT UPPER EXTREMITY: Yes shoulder joint Right shoulder: Yes Right shoulder joint inspection exam (no obvious deformity, mild edema), Yes palpation, Yes Right shoulder joint ROM exam (significantly decreased due to pain) and Yes Right shoulder joint neurovascular exam (normal) and Yes elbow joint (normal gross inspection elbow joint) Right elbow: Yes inspection, Yes palpation (TTP over ulnar head), Yes ROM (decreased) and Yes neurovascular exam (normal) Neuro: COMMON NORMALS: patient oriented x3, moves all extremities, no focal motor deficits and no sensory deficits noted SENSORIUM/ORIENTATION: Yes alert Course Vital Signs: Vital signs: Vital Signs Temperature 98.3 F 10/03/24 14:28 Pulse Rate 63 10/03/24 14:45 Respiratory Rate 17 10/03/24 14:28 Blood Pressure 120/81 10/03/24 14:45 Pulse Oximetry 96 10/03/24 14:45 Oxygen Delivery Me thod Room Air 10/03/24 14:45 MDM - Extremity Injury (Upper) Medical Decision Making XRs of the right elbow and shoulder were unremarkable. Patient was placed in a sling for comfort. Discussed conservative therapies. Will have case management help set him up with primary care provider for further evaluation. Medical Records I reviewed the patient's medical records. Lab Data Radiology Impressions Shoulder X-Ray 10/03/24 14:40 IMPRESSION: 1. No evidence of fracture or subluxation. If there is concern for labral, muscle or tendon pathology, follow-up outpatient MRI may be helpful. XR interpretation done by ED provider, pending radiology final review Discharge Plan Discharge Patient Disposition: Home Clinical Impression: Injury of right shoulder Qualifiers: Encounter type: initial encounter Qualified Code(s): S49.91XA - Unspecified injury of right shoulder and upper arm, initial encounter Condition: Stable Prescriptions: No Action methylprednisolone 4 mg tablets,dose pack See Rx Instructions .ROUTE .COMPLEX Rx Instructions: medrol dosepack Discharge Orders: Discharge ED (Routine); Ordered 10/03/24 Ordered By: Cony Garcia Activity Restrictions/Additional Instructions: As we discussed, finish your steroids. You may use [id number] Tylenol/Motrin as well as ice and heat to help discomfort. Will have primary care set up with a primary care provider for further evaluation of your shoulder pain. Sling was provided for comfort. We discussed gentle/passive range of motion. Print Language: Slovak Coding Level of Care Code ED Education Department Registrar for [facility]
--- NOTE | 2024-10-03 14:40 | XRR_ITS ---
PROCEDURE INFORMATION: Exam: XR Right Shoulder Exam date and time: 10/03/2024 2:46 PM Age: 44 years old Clinical indication: Shoulder; Right; Pain from lifting; Additional info: Pain/injury TECHNIQUE: Imaging protocol: Radiologic exam of the right shoulder. Views: 2 or more views. COMPARISON: CR XR chest 2V* [id number] 11/18/2022 11:10 AM FINDINGS: Bones/joints: The glenohumeral articulation is grossly intact with mild osteoarthritis. The acromioclavicular articulation is grossly intact. Soft tissues: No gross soft tissue abnormality. XR/XR shoulder RT min 2V* [id number] IMPRESSION: 1. No evidence of fracture or subluxation. If there is concern for labral, muscle or tendon pathology, follow-up outpatient MRI may be helpful.
--- NOTE | 2024-10-03 14:40 | XRR_ITS ---
PROCEDURE INFORMATION: Exam: XR Right Elbow Exam date and time: 10/03/2024 2:48 PM Age: 44 years old Clinical indication: Elbow; Right; Pain from lifting; Additional info: Pain/injury TECHNIQUE: Imaging protocol: Radiologic exam of the right elbow. Views: 3 or more views. COMPARISON: CR XR shoulder RT min 2V* [id number] 10/03/2024 2:46 PM FINDINGS: Bones/joints: No evidence of fracture or subluxation. No evidence of joint effusion. Radiocapitellar alignment is maintained. Soft tissues: Grossly unremarkable. XR/XR elbow RT min 3V* [id number] IMPRESSION: 1. No evidence of fracture or subluxation. If there is concern for ligamentous or tendon pathology, follow-up outpatient MRI may be helpful.
[2024-10-03 14:45] VITALS: BP 120/81; PULSE 63; O2SAT 96
[2024-10-03] MEDS: dexamethasone 10 mg/mL INJ 8 MG IM (15:14)
[2024-10-03] MEDS: ketorolac 60 mg/2 mL INJ IM (15:15)
--- NOTE | 2024-10-04 08:43 | DCPLANNER ---
Message sent to [facility] to establish PCP and Follow up-MDM - Extremity Injury (Upper) Medical Decision Making XRs of the right elbow and shoulder were unremarkable. Patient was placed in a sling for comfort. Discussed conservative therapies. Will have case management help set him up with primary care provider for further evaluation.
== END 2024-10-03 15:53 | disposition home or self-care (01) ==
PROVIDERS: Emergency Provider Physician Assistant
DX: S49.91XA Unspecified injury of right shoulder and upper arm, initial encounter (principal); Z72.0 Tobacco use; X58.XXXA Exposure to other specified factors, initial encounter
CPT/HCPCS: 73030; 73080; 96372; 99284; J1100; J1885